=== PATIENT | female | born 1995 | race Caucasian/White ===

== ENCOUNTER 2017-04-19 10:45 | Emergency (ER) | payer OTHER ==
[2017-04-19 10:50] VITALS: BP 115/70; BMI 24.2
--- NOTE | 2017-04-19 11:34 | DR.GENAD ---
HPI - PCP Primary Care Physician: toña thrasher - Complaint/Symptoms Chief Complaint Doctors Comments: Patient is a female with LMP 12 March;EDC 12/16' started with monthly one weeks ago, stopped s/p three days, now complains of lower abdominal pain. She took acetaminophen x 1 but does not help. Chief Complaint:: patient took a test about a weak ago and it was positive, now she is bleeding and and having abd pain - Source History Provided: Patient - Mode of Arrival Mode of Arrival: Ambulatory - Timing Onset of Chief Complaint: 04/12/17 PMH - PMH Past Medical History: Yes Past Medical History: Anxiety, Asthma Past Surgical History: Yes Surgical History: Tonsillectomy - Family History History of Family Medical Conditions: Yes Family Medical History: Cancer, Coronary Artery Disease - Social History Does patient currently use any type of tobacco product: No Have you used tobacco products in the last 12 months: No Type of Tobacco Use: None Does any household member use tobacco: Yes Alcohol Use: Rarely Do you use any recreational Drugs:: No Lives With: Family Lives Where: Home - infectious screening In the last 2 months have you had wt loss of >10#?: NO Have you had fever, night sweats or hemotysis?: No Have you traveled outside the country in the last 6 months?: No Isolation: Standard ROS - Review of Systems Eyes: No Symptoms Reported ENTM: No Symptoms Reported Respiratoy: No Symptoms Reported Cardiovascular: No Symptoms Reported, See HPI Gastrointestinal/Abdominal: No Symptoms Reported Genitourinary: No Symptoms Reported Neurological: No Symptoms Reported Musculoskeletal: No Symptoms Reported Integumentary: No Symptoms Reported Hematologic/Lymphatic: No Symptoms Reported Endocrine: No Symptoms Reported Psychiatric: No Symptoms Reported All Other Systems: Reviewed and Negative PE - Vital Signs Vitals: Temperature 99.1 F Pulse Rate 86 Respiratory Rate 16 Blood Pressure [Left Arm] 123/74 Blood Pressure [Right Arm] 126/59 Blood Pressure 115/70 O2 Sat by Pulse Oximetry 100 - Discharge Plan Condition: Stable - Follow ups/Referrals Follow ups/Referrals: ALEXANDRU THRASHER [Primary Care Provider] - 3 days - Instructions
[2017-04-19 11:41] LABS: BILIRUBIN,URINE NEGATIVE (NEGATIVE); BLOOD/HEMOGLOBIN,URINE 1+ (NEGATIVE); GLUCOSE, URINE NEGATIVE (NEGATIVE); KETONES,URINE NEGATIVE (NEGATIVE); LEUKOCYTE ESTERASE ,URINE 3+ (NEGATIVE); NITRITES,URINE NEGATIVE (NEGATIVE); PH,URINE 6.5 (5.0 - 8.0); PROTEIN,URINE NEGATIVE (NEGATIVE); UROBILINOGEN,URINE NORMAL (NORMAL)
[2017-04-19 11:56] LABS: APPEARANCE,URINE CLEAR (CLEAR); BACTERIA,URINE TRACE /HPF (NEGATIVE); COLOR,URINE YELLOW (YELLOW); RBC,URINE RARE /HPF (NEGATIVE); SQUAMOUS EPITHELIAL CELL,UR FEW /HPF (NEGATIVE)
[2017-04-19 12:02] LABS: BASOPHILS % (AUTO) 0.6 % (0.2-1.0); EOSINOPHILS # (AUTO) 0.1 x10^3/uL (0.0-0.2); EOSINOPHILS % (AUTO) 2.3 % (0.9-2.9); HEMATOCRIT 39.7 % (36.0-47.0); HEMOGLOBIN 13.7 g/dL (12.0-16.0); LYMPHOCYTES # (AUTO) 1.5 X10^3/uL (1.3-2.9); LYMPHOCYTES % (AUTO) 30.3 % (21.0-51.0); MEAN CORPUSCULAR HEMOGLOBIN 29.8 pg (27.0-34.0); MEAN CORPUSCULAR HGB CONC 34.5 g/dL (33.0-35.0); MEAN CORPUSCULAR VOLUME 86.3 fL (80.0-100.0); MEAN PLATELET VOLUME 10.5 fL (7.4-11.0); MONOCYTES # (AUTO) 0.3 x10^3/uL (0.3-0.8); MONOCYTES % (AUTO) 5.4 % (0.0-13.0); NEUTROPHILS # (AUTO) 3.1 x10^3/uL (2.2-4.8); NEUTROPHILS % (AUTO) 61.4 % (42.0-75.0); PLATELET COUNT 195 X10^3/uL (150.0-450.0); RED CELL DISTRIBUTION WIDTH 15.2 % (11.6-16.5); WHITE BLOOD COUNT 5.1 X10^3/uL (3.6-10.0)
[2017-04-19 12:09] LABS: BLOOD UREA NITROGEN 8 mg/dL (7-18); CALCIUM 8.4 mg/dL (8.5-10.1); CARBON DIOXIDE 25.6 mmol/L (21-32); CHLORIDE 109 mmol/L (98-107); CREATININE 0.86 mg/dL (0.55-1.02); GLUCOSE 82 mg/dL (65-99); SODIUM 144 mmol/L (136-145); eGFR BLACK RACES > 60 (>60); eGFR NON BLACK RACES > 60 (>60)
== END 2017-04-19 12:04 | disposition home or self-care (01) | DRG 782 ==
LOC: ER 10:59
DX: O26.851 Spotting complicating pregnancy, first trimester (principal); Z3A.00 Weeks of gestation of pregnancy not specified
CPT/HCPCS: 36415; 80048; 81001; 84702; 85025; 99282; 99284

== ENCOUNTER 2017-07-20 18:39 | Emergency (ER) | payer SELFPAY ==
[2017-07-20 18:48] VITALS: BP 123/60; BMI 23.2
[2017-07-20] MEDS ORDERED: DUONEB 0.5 MG/3 MG NEB ONE (18:59)
[2017-07-20] MEDS ORDERED: SOLU-Medrol 125 MG VIAL IVP ONE (18:59)
[2017-07-20] MEDS ORDERED: SOLU-Medrol 125 MG VIAL ONE (19:05)
[2017-07-20] MEDS ORDERED: DUONEB 0.5 MG/3 MG ONE (19:10)
--- NOTE | 2017-07-20 19:10 | DR.GENAD ---
HPI - PCP Primary Care Physician: hector - Complaint/Symptoms Chief Complaint Doctors Comments: Patient admits to using neb daily in addition to steroids. She also states that she has anxiety taking xanax 2mg tid. Chief Complaint:: pt states" i just had a asthma attach. i have them alot" - Source History Provided: Patient - Mode of Arrival Mode of Arrival: EMS - Timing Onset of Chief Complaint: 07/20/17 PMH - PMH Past Medical History: Yes Past Medical History: Anxiety, Asthma Past Surgical History: Yes Surgical History: Tonsillectomy - Family History History of Family Medical Conditions: Yes Family Medical History: Cancer, Coronary Artery Disease - Social History Does any household member use tobacco: No Alcohol Use: None Do you use any recreational Drugs:: No Lives With: Family Lives Where: Home - infectious screening In the last 2 months have you had wt loss of >10#?: NO Have you had fever, night sweats or hemotysis?: No Have you traveled outside the country in the last 6 months?: No Isolation: Standard ROS - Review of Systems Eyes: No Symptoms Reported ENTM: No Symptoms Reported Respiratoy: No Symptoms Reported Cardiovascular: No Symptoms Reported Gastrointestinal/Abdominal: No Symptoms Reported Genitourinary: No Symptoms Reported Neurological: No Symptoms Reported Musculoskeletal: No Symptoms Reported Integumentary: No Symptoms Reported Hematologic/Lymphatic: No Symptoms Reported Endocrine: No Symptoms Reported Psychiatric: No Symptoms Reported All Other Systems: Reviewed and Negative PE - Vital Signs Vitals: Temperature 97.6 F Pulse Rate 87 Respiratory Rate 22 Blood Pressure [Left Arm] 123/74 Blood Pressure [Right Arm] 126/59 Blood Pressure 123/60 O2 Sat by Pulse Oximetry 100 - General Limitations: No Limitations General Appearance: Alert, In No Apparent Distress - Head Head Exam: Normal Inspection, Atraumatic - Eyes Eye exam: Normal Appearance, PERRL, EOMI - ENT ENT Exam: Normal Exam, Normal Oropharynx External Ear Exam: Normal External Inspection TM/Canal Exam: Bilateral Normal Nose Exam: Normal Nose Exam Mouth Exam: Normal Inspection Throat Exam: Normal Inspection - Neck Neck Exam: Normal Inspection, Full ROM - Chest Chest Inspection: Normal Inspection - Respiratory Respiratory Exam: Normal Lung Sounds Bilat Respiratory Exam: Bilateral Clear to Auscultation - Cardiovascular Cardiovascular Exam: Regular Rate, Normal Rhythm - Abdominal Exam Abdominal Exam: Normal Inspection, Normal Bowel Sounds - Extremities Extremities Exam: Normal Inspection, Full ROM - Back Back Exam: Normal Inspection, Full ROM - Neurologic Neurological Exam: Alert, Oriented X3, CN II-XII Intact - Psychiatric Psychiatric Exam: Normal Affect, Normal Mood - Skin Skin Exam: Warm, Dry, Intact ROR - XRAY XRAY Interpreted by: Self (Chest: clear) - Diagnosis Discharge Problem: Asthmatic bronchitis with exacerbation Qualifiers: Asthma severity: mild intermittent Qualified Code(s): J45.21 - Mild intermittent asthma with (acute) exacerbation - Discharge Plan Condition: Stable - Follow ups/Referrals Follow ups/Referrals: NFD,None [Primary Care Provider] - 3 days - Instructions
--- NOTE | 2017-07-20 22:08 | RAD ---
HISTORY: Asthma attack. Study: Single-view chest. Comparison: November 27, 2015. Findings: The trachea is midline. The cardiac silhouette is within normal limits. The lungs are clear without focal infiltrate or effusion. The bony thorax is unremarkable. IMPRESSION: No acute cardiopulmonary disease. Reported By:
== END 2017-07-20 19:57 | disposition home or self-care (01) ==
LOC: ER 18:48
DX: J45.21 Mild intermittent asthma with (acute) exacerbation (principal)
CPT/HCPCS: 71010; 94640; 96365; 96374; 99283; J2930; J7620

== ENCOUNTER 2018-01-18 05:45 | Emergency (ER) | payer SELFPAY ==
[~2018-01-18 05:45] MED LIST: DUONEB 0.5 MG/3 MG NEB ONE
[2018-01-18] MEDS ORDERED: DUONEB 0.5 MG/3 MG ONE ×2 (05:49→05:58)
[2018-01-18 05:52] VITALS: BMI 25.2
[2018-01-18] MEDS ORDERED: DECADRON INJ ONE (05:58)
--- NOTE | 2018-01-18 05:58 | DR.GENAD ---
HPI - Complaint/Symptoms Chief Complaint Doctors Comments: Patient presents to the ED for evaluation of her asthma. She reports that she has been using her albuterol inhaler throughout the day without any improvement in her astham. She denies smoking but her significant other and mother smokes. Patient states that she has been using her inhaler on a daily basis since the 05 of January. She has no primary care physician but uses her Ob for medication refills. PMH - PMH Past Medical History: Anxiety, Asthma Past Surgical History: Yes Surgical History: Tonsillectomy - Family History Family Medical History: Cancer, Coronary Artery Disease - Social History Do you use any recreational Drugs:: No ROS - Review of Systems Eyes: No Symptoms Reported ENTM: No Symptoms Reported Respiratoy: Non-Productive Cough, Wheezing Cardiovascular: No Symptoms Reported Gastrointestinal/Abdominal: No Symptoms Reported Genitourinary: No Symptoms Reported Neurological: No Symptoms Reported Musculoskeletal: No Symptoms Reported Integumentary: No Symptoms Reported Hematologic/Lymphatic: No Symptoms Reported Endocrine: No Symptoms Reported Psychiatric: No Symptoms Reported All Other Systems: Reviewed and Negative PE - Vital Signs Vitals: Temperature 98.6 F Pulse Rate 127 Respiratory Rate 28 Blood Pressure [Left Arm] 123/74 Blood Pressure [Right Arm] 126/59 Blood Pressure 128/67 O2 Sat by Pulse Oximetry 94 - General Limitations: No Limitations General Appearance: Alert, In No Apparent Distress - Head Head Exam: Normal Inspection, Atraumatic - Eyes Eye exam: Normal Appearance, PERRL, EOMI - ENT ENT Exam: Normal Exam External Ear Exam: Normal External Inspection TM/Canal Exam: Bilateral Normal Nose Exam: Normal Nose Exam Mouth Exam: Normal Inspection Throat Exam: Normal Inspection - Neck Neck Exam: Normal Inspection - Chest Chest Inspection: Normal Inspection - Respiratory Respiratory Exam: Normal Lung Sounds Bilat Respiratory Exam: Bilateral Wheezing (posterior bases), Bilateral Decreased Breath Sounds - Cardiovascular Cardiovascular Exam: Regular Rate, Normal Rhythm - Abdominal Exam Abdominal Exam: Normal Inspection, Normal Bowel Sounds Abdominal Tenderness: negative: RUQ, RLQ, LUQ, LLQ, Epigastrium, Suprapubic, Diffuse, Mild, Moderate, Severe, Other - Extremities Extremities Exam: Normal Inspection, Full ROM - Back Back Exam: Normal Inspection, Full ROM - Neurologic Neurological Exam: Alert, Oriented X3, CN II-XII Intact - Psychiatric Psychiatric Exam: Normal Affect, Normal Mood - Skin Skin Exam: Warm, Dry, Intact Course - Treatment Treatment: Duo Neb +Decadron - Reevaluation 1st: Improved - Education/Counseling Education/Counseling: Education Educated On: Treatment, Diagnosis, Prognosis, Needs for Follow Up - Diagnosis Discharge Problem: Acute asthma exacerbation Qualifiers: Asthma severity: mild Asthma persistence: intermittent Qualified Code(s): J45.21 - Mild intermittent asthma with (acute) exacerbation - Discharge Plan Condition: Stable Prescriptions: Albuterol Sulfate [VENTOLIN or PROAIR HFA Inhaler *] 2 puff INH Q4H PRN #1 inh PRN Reason: Asthma Symptoms Fluticasone-Salmeterol 100/50 [ADVAIR DISKUS 100/50 60-DOSE *] 1 puff IN BID #1 each - Follow ups/Referrals Follow ups/Referrals: MIGUEL DEL CID [Primary Care Provider] - 3 days - Instructions
[2018-01-18] MEDS ORDERED: DECADRON JET NEB (RESP USE) NEB ONE (06:01)
[2018-01-18] MEDS ORDERED: DUONEB 0.5 MG/3 MG NEB ONE (06:01)
[2018-01-18 06:22] VITALS: BP 130/63
== END 2018-01-18 06:22 | disposition home or self-care (01) ==
LOC: ER 05:45
DX: J45.21 Mild intermittent asthma with (acute) exacerbation (principal)
CPT/HCPCS: 94640; 99282; J1100; J7620

== ENCOUNTER 2018-01-19 03:00 | Emergency (ER) | payer OTHER ==
[2018-01-19 03:16] VITALS: BMI 25.2
[2018-01-19] MEDS ORDERED: PROVENTIL NEB TX 0.083% 2.5MG/ 3ML ONE (03:31)
--- NOTE | 2018-01-19 03:40 | DR.GENAD ---
HPI - PCP Primary Care Physician: mackenzie - HPI Comment HPI Comment: HERE VIA EMS. NEB TREATMENT WITH ALBUTEROL BUT PATIENT IS STILL FEELING SOB. NO FEVER. IN ED LAST NIGHT FOR SAME. MEDS PRESCRIB IS NOT FILL YET. - Complaint/Symptoms Chief Complaint Doctors Comments: INCREASING SOB TIMES ONE HOUR. Chief Complaint:: pt c/o having a asthma attack pt seen [id number] given rx for advair diskus and ventolin inhaler. pt is 16 week ob - Nurses notes reviewed Nurses Notes Review: Yes - Source History Provided: Patient - Mode of Arrival Mode of Arrival: EMS - Timing Onset of Chief Complaint: 01/19/18 Came on: Suddenly - Duration Duration: Constant Duration: Hours - Severity Severity: Moderate PMH - PMH Past Medical History: Yes Past Medical History: Anxiety, Asthma Past Surgical History: Yes Surgical History: Tonsillectomy - Family History History of Family Medical Conditions: Yes Family Medical History: Cancer, Coronary Artery Disease - Social History Does any household member use tobacco: Yes (mom and ) Alcohol Use: None Do you use any recreational Drugs:: No Lives With: Family Lives Where: Home - infectious screening In the last 2 months have you had wt loss of >10#?: NO Have you had fever, night sweats or hemotysis?: No Have you traveled outside the country in the last 6 months?: No Isolation: Standard ROS - Review of Systems Constitutional: Weakness, Fatigue. negative: Chills, Fever, Loss of Appetite Eyes: No Symptoms Reported. negative: Eye Pain, Discharge ENTM: Nose Congestion. negative: Ear Pain, Nose Discharge, Throat Pain Respiratoy: Productive Cough, Short of Breath, Wheezing. negative: Hemoptysis Cardiovascular: Chest Pain. negative: Edema Gastrointestinal/Abdominal: No Symptoms Reported. negative: Abdominal Pain, Diarrhea, Nausea, Vomiting Genitourinary: No Symptoms Reported. negative: Dysuria, Frequency, Hematuria Neurological: Weakness. negative: Headache, Dizziness Musculoskeletal: No Symptoms Reported Integumentary: No Symptoms Reported Hematologic/Lymphatic: No Symptoms Reported Endocrine: No Symptoms Reported All Other Systems: Reviewed and Negative PE - Vital Signs Vitals: Temperature 97.4 F Pulse Rate 103 Respiratory Rate 24 Blood Pressure [Left Arm] 130/63 Blood Pressure [Right Arm] 126/59 Blood Pressure 122/89 O2 Sat by Pulse Oximetry 94 - General Limitations: No Limitations General Appearance: Alert - Head Head Exam: Normal Inspection - Eyes Eye exam: Normal Appearance - ENT ENT Exam: Normal External Ear Exam External Ear Exam: Normal External Inspection TM/Canal Exam: Bilateral Normal Nose Exam: Normal Nose Exam Mouth Exam: Normal Inspection Throat Exam: Normal Inspection - Neck Neck Exam: Trachea Midline - Chest Chest Inspection: Symmetric Chest Wall Rise - Respiratory Respiratory Exam: Normal Lung Sounds Bilat Respiratory Exam: Bilateral Wheezing, Bilateral Rhonchi, Left Wheezing, Left Rhonchi, Right Wheezing, Right Rhonchi, Upper Wheezing, Upper Rhonchi, Lower Wheezing, Lower Rhonchi - Cardiovascular Cardiovascular Exam: Regular Rate, Normal Rhythm - Abdominal Exam Abdominal Exam: Normal Bowel Sounds, Soft. negative: Tenderness - Extremities Extremities Exam: Normal Inspection - Back Back Exam: Normal Inspection - Neurologic Neurological Exam: Alert, Oriented X3 - Psychiatric Psychiatric Exam: Anxious - Skin Skin Exam: Normal Color MDM - Additional Information Additional Information Obtained From: Family - Differential Diagnosis Differential Diagnosis: ACUTE EXACERBATION OF ASTHMA. Course - Treatment Treatment: SEE ORDERS. PATIENT IS FEELING BETTER . LAYING FLATE I9N BED WITHOUT ACUTE RESP DISTRESS. MILD WHEEZING PRESENT. - Consultation Consultation Comments: DISCUSS PATIENT WITH DR. DEL CID. HER OFFICE WILL BE IN TOUCH WITH PATIENT TODAY. - Education/Counseling Education/Counseling: Patient, Family, Education Educated On: Diagnosis, Needs for Follow Up ROR - Labs Reviewed Laboratory Results Reviewed?: Yes Laboratory: Sample Site [facility] 01/19/18 03:27 ABG pH 7.480 (7.35-7.45) H 01/19/18 03:27 ABG pCO2 28.0 mmHg (35.0-45.0) L 01/19/18 03:27 ABG pO2 67.0 mmHg (80.0-100.0) L 01/19/18 03:27 ABG HCO3 20.9 mmol/L (22-26) L 01/19/18 03:27 ABG O2 Saturation 94.0 % (90-100) 01/19/18 03:27 ABG Base Excess -1.5 mmol/L (-2.0-2.0) 01/19/18 03:27 Cordell Test Na 01/19/18 03:27 A-a Gradient 48.0 mmHg 01/19/18 03:27 FiO2 21.000 01/19/18 03:27 Blood Gas Comments [facility] abg well-mtf 01/19/18 03:27 - Diagnosis Discharge Problem: Asthma without acute exacerbation - Discharge Plan Condition: Stable - Follow ups/Referrals Follow ups/Referrals: MIGUEL DEL CID [Primary Care Provider] - 01/19/18 - Instructions Instructions: Asthma, Adult, [id number], Asthma Attack Prevention, Adult Additional Instructions: RETURN TO ED IF WORSE. FILL PRESCRIPTIONS THIS AM AND USE INSTRUCTED.
[2018-01-19] MEDS ORDERED: ACCUNEB 1.25 MG NEBULE NEB ONE (03:43)
[2018-01-19] MEDS ORDERED: DECADRON JET NEB (RESP USE) NEB ONE ×4 (03:43→17:22)
[2018-01-19 03:45] LABS: ABG BASE EXCESS -1.5 mmol/L (-2.0-2.0); ABG HCO3 20.9 mmol/L (22-26)
[2018-01-19] MEDS ORDERED: TYLENOL 500 MG TAB EXTRA STRENGTH PO ONE ×2 (04:31→04:40)
[2018-01-19] MEDS ORDERED: DUONEB 0.5 MG/3 MG NEB ONE (15:43)
[2018-01-19] MEDS: DUONEB 0.5 MG/3 MG NEB ONE ×2 (15:54→17:21)
[2018-01-19] MEDS ORDERED: BUSPAR PO ONE (16:22)
[2018-01-19 23:36] VITALS: BP 153/80
== END 2018-01-19 17:48 | disposition home or self-care (01) ==
LOC: ER 03:00
DX: R06.02 Shortness of breath (principal); J45.909 Unspecified asthma, uncomplicated
CPT/HCPCS: 36600; 82803; 94640; 99284; J7613; J7620

== ENCOUNTER 2018-01-19 11:27 | Emergency (ER) | payer OTHER ==
[2018-01-19 11:38] VITALS: BMI 25.2
--- NOTE | 2018-01-19 11:55 | DR.PSYCH ---
HPI - Time Seen Time seen: 11:35 - PCP Primary Care Physician: DR. DEL CID - Complaint Chief Complaint Doctors Comments: Patient presents with complaint of anxiety attack. She states that she has anxiety since [age] years of age; has been on xanax 2mg tid. She stopped taking medication when she became . She was seen on last night in the ED for asthma attack and the previous night for same. She is on albuterol and Advair. Chief Complaint:: PATIENT STATED THAT SHE BELIVES HER PANIC ATTACKS ARE COMING CLOSER AND CLOSER SINCE SHE WAS TAKEN OFF HER MEDS. SHE STATED THAT SHE WAS ON XANAX PRIOR OB STATUS. PATIENT WAS GIVEN DUO NEBS AND ALSO A ATIVAN 1 MG SL TO ARRIVING AT ED. - Source History Provided: Patient, EMS - Mode of Arrival Mode of Arrival: EMS - Timing Onset of Chief Complaint: 01/19/18 PMH - PMH Past Medical History: Yes Past Medical History: Anxiety, Asthma Past Surgical History: Yes Surgical History: Tonsillectomy - Family History History of Family Medical Conditions: Yes Family Medical History: Cancer, Coronary Artery Disease - Social History Does patient currently use any type of tobacco product: No Have you used tobacco products in the last 12 months: No Type of Tobacco Use: None Does any household member use tobacco: No Alcohol Use: None Do you use any recreational Drugs:: No Lives With: Family Lives Where: Home - infectious screening In the last 2 months have you had wt loss of >10#?: NO Have you had fever, night sweats or hemotysis?: No Have you traveled outside the country in the last 6 months?: No Isolation: Standard ROS - Review of Systems Constitutional: No Symptoms Reported Eyes: No Symptoms Reported ENTM: No Symptoms Reported Respiratoy: No Symptoms Reported Cardiovascular: No Symptoms Reported Gastrointestinal/Abdominal: No Symptoms Reported Genitourinary: No Symptoms Reported Neurological: No Symptoms Reported Musculoskeletal: No Symptoms Reported Integumentary: No Symptoms Reported Hematologic/Lymphatic: No Symptoms Reported Endocrine: No Symptoms Reported Psychiatric: No Symptoms Reported All Other Systems: Reviewed and Negative PE - Vitals Vitals: Temperature 97.8 F Pulse Rate 128 Respiratory Rate 22 Blood Pressure [Left Arm] 109/59 Blood Pressure [Right Arm] 126/59 Blood Pressure 138/105 O2 Sat by Pulse Oximetry 97 - General Limitations: No Limitations General Appearance: Alert, In No Apparent Distress - Head Head Exam: Normal Inspection, Atraumatic Head Exam Physical: Laceration - Eyes Eye exam: Normal Appearance, PERRL, Scleral Icterus Pupils: Regular, Round: Bilateral Sclera/Conjunctival: Normal Inspection: Bilateral - ENT ENT Exam: Normal Exam, Normal Oropharynx - Neck Neck Exam: Normal Inspection, Full ROM - Chest Chest Inspection: Normal Inspection, Symmetric Chest Wall Rise - Respiratory Respiratory Exam: Normal Lung Sounds Bilat Respiratory Exam: Bilateral Clear to Auscultation - Cardiovascular Cardiovascular Exam: Regular Rate, Normal Rhythm - Abdominal Exam Abdominal Exam: Normal Inspection Abdominal Tenderness: negative: RUQ, RLQ, LUQ, LLQ, Epigastrium, Suprapubic, Diffuse, Mild, Moderate, Severe, Other - Extremities Extremities Exam: Normal Inspection, Full ROM - Back Back Exam: Normal Inspection - Neurologic Neurological Exam: Alert, Oriented X3, CN II-XII Intact Cranial Nerve Exam: EOM Function (II, III, IV, ): Normal Cerebellar Function: Finger to Nose: Normal Cerebellar Function: Normal Gait Motor Strength - LUE: 3/5 Motor Strength - RUE: 3/5 Motor Strength - LLE: 3/5 Motor Strength - RLE: 3/5 Sensory Exam Upper Extremity: Light Touch: Normal Sensory Exam Lower Extremity: Light Touch: Normal DTR: achilles tendon (L): 2+ - Psychiatric Psychiatric Exam: Anxious - Skin Skin Exam: Warm, Dry Course - Treatment Treatment: Patient received one dose of larazepam lmg enroute to ED from EMS - Reevaluation 1st: Improved - Diagnosis Discharge Problem: Anxiety attack - Discharge Plan Condition: Stable - Follow ups/Referrals Follow ups/Referrals: MIGUEL DEL CDI [Primary Care Provider] - 3 days - Instructions
[2018-01-19] MEDS ORDERED: DUONEB 0.5 MG/3 MG ONE ×2 (15:48→17:13)
[2018-01-19] MEDS ORDERED: DECADRON JET NEB (RESP USE) NEB ONE ×2 (15:55→17:12)
[2018-01-19] MEDS ORDERED: BUSPAR ONE (16:26)
[2018-01-20] MEDS ORDERED: MAGNESIUM SULFATE 1 GM/100 mL PREMIX 1 GM/100 ML BAG IV ONE ×2 (00:38→07:16)
[2018-01-20] MEDS ORDERED: DUONEB 0.5 MG/3 MG ONE ×4 (00:42→07:19)
[2018-01-20] MEDS ORDERED: SOLU-Medrol 125 MG VIAL ONE (00:42)
[2018-01-20] MEDS: DUONEB 0.5 MG/3 MG NEB ONE ×2 (00:52→04:44)
[2018-01-20] MEDS ORDERED: SOLU-Medrol 125 MG VIAL IVP SCH (01:00)
[2018-01-20] MEDS ORDERED: DUONEB 0.5 MG/3 MG NEB ONE ×2 (04:14→07:20)
[2018-01-20 04:35] LABS: ABG BASE EXCESS -2.8 mmol/L (-2.0-2.0); ABG HCO3 19.1 mmol/L (22-26)
--- NOTE | 2018-01-20 04:56 | RAD ---
AP Chest Indication: Shortness of breath Comparison: 07/20/17 Findings: The trachea is midline. The cardiac silhouette is unremarkable. The lungs are clear without focal i nfiltrate or effusion. The bony thorax is unremarkable. IMPRESSION: 1. No acute cardiopulmonary abnormality. Reported By:
--- NOTE | 2018-01-20 05:45 | US ---
OB ultrasound greater than 14 weeks Indication: Vaginal bleeding Comparison: None available Technique: Multiple grayscale and color flow Doppler images of the pelvis were obtained with focused evaluation of the fetus. Findings: A viable single intrauterine is identified with heart tones of 142 beats per minute. A transverse presentation is observed with a anterior and fundal placenta. No retroplacental or subch ronic hemorrhage. Normal amniotic fluid is noted. Value Estimated Gestational Age BPD 3.38 cm 16 weeks, 3 days HC 11.08 cm 15 weeks, 2 days AC 9.92 cm 16 weeks, 0 days FL 1.95 cm 15 weeks, 6 days Estimated gestational age is 15 weeks, 6 days. Estimated weight is 137 g. IMPRESSION: A viable single intrauterine with an average ultrasound age of 15 weeks, 6 days. The placenta is normal morphology without evidence of subchorionic or retroplacental bleeding. Reported By:
[2018-01-20] MEDS ORDERED: XANAX PO ONE (07:16)
[2018-01-20] MEDS ORDERED: XANAX ONE (07:24)
[2018-01-20] MEDS ORDERED: TUSSIONEX PENNKINETIC SUSP PO ONE ×2 (07:54→07:57)
[2018-01-20] MEDS ORDERED: TUSSIONEX PENNKINETIC SUSP ONE (07:55)
[2018-01-20 08:24] VITALS: BP 121/70
== END 2018-01-20 08:32 | disposition home or self-care (01) ==
LOC: ER 11:27
DX: F41.8 Other specified anxiety disorders (principal); Z3A.15 15 weeks gestation of pregnancy
CPT/HCPCS: 36600; 71045; 76815; 82803; 94640; 96374; 99282; 99284; 99285; J2930; J7613; J7620

== ENCOUNTER 2018-02-02 20:51 | Emergency (ER) | payer OTHER ==
[2018-02-02 20:58] LABS: ABG BASE EXCESS -3.1 mmol/L (-2.0-2.0); ABG HCO3 27.9 mmol/L (22-26)
[2018-02-02 20:59] LABS: ABG ALLEN TEST POS; FRACTIONATED INSPIRED OXYGEN 100
--- NOTE | 2018-02-02 21:04 | DR.GENAD ---
HPI - PCP Primary Care Physician: mackenzie - HPI Comment HPI Comment: PATIENT RESPOND TOPAINFULL STIMULI. - Complaint/Symptoms Chief Complaint Doctors Comments: PATIENT HAVE HISTORY OF ASTHMA. HER ASTHMA MEDICATIONS DID NOT HELP HER RESP DISTRESS. SHE IS 15 WEEKS . DUE DATE IS 07/22/2018. PATIENTS OB DR IS DR. DEL CID IN [facility]. SHE PRESENTED COLD, PALE AND CLAMY TO ED WITH VISIBLE PERIPHERAL CYANOSIS. O2 SAT IN THE 50S.SHE WAS SLEEPY AND ASROUSE WITH PAINFUL STIMULI. Chief Complaint:: pt's boyfriend states" SHE'S BEEN HAVING BAD PANIC ATTACKS SHE TOKE A EXTRA HALF OF A XANAX BAR. SHE'S BEEN BREATHING LIKE THIS FOR 5 HOURS " NAIL BEDS ARE CYANOTIC PT'S SKIN IS DUSKY AND RESP ARE RAPID AND SWALLOW. - Nurses notes reviewed Nurses Notes Review: Yes - Source History Provided: Family Member - Mode of Arrival Mode of Arrival: Wheelchair - Timing Onset of Chief Complaint: 02/02/18 Came on: Gradually - Duration Duration: Constant Duration: Hours - Severity Severity: Severe PMH - PMH Past Medical History: Yes Past Medical History: Anxiety, Asthma Past Surgical History: Yes Surgical History: Tonsillectomy - Family History History of Family Medical Conditions: Yes Family Medical History: Cancer, Coronary Artery Disease - Social History Do you use any recreational Drugs:: No Lives With: Family Lives Where: Home - infectious screening In the last 2 months have you had wt loss of >10#?: NO Have you had fever, night sweats or hemotysis?: No Have you traveled outside the country in the last 6 months?: No Isolation: Standard ROS - Review of Systems Constitutional: Weakness, Fatigue, Other. negative: Fever Eyes: Other (RESPOND TO PAINFUL STIMULI.) ENTM: negative: Ear Pain, Nose Discharge, Nose Congestion, Throat Pain Respiratoy: No Symptoms Reported, Non-Productive Cough, Short of Breath, Wheezing. negative: Hemoptysis Cardiovascular: Chest Pain, Palpitations, Cyanosis. negative: Edema Gastrointestinal/Abdominal: No Symptoms Reported. negative: Abdominal Pain, Nausea, Vomiting Genitourinary: Other (DECREASE URINE OUTPUT.). negative: Dysuria Neurological: Headache, Weakness, Dizziness Musculoskeletal: Muscle Pain, Chest wall, Rib(s) Integumentary: Change in Color, Dryness Hematologic/Lymphatic: Anemia Endocrine: Increased Thirst. negative: Flushing All Other Systems: Reviewed and Negative PE - Vital Signs Vitals: Pulse Rate [Right] 105 Pulse Rate 106 Respiratory Rate 40 Blood Pressure [Left Arm] 133/61 Blood Pressure [Right Arm] 121/70 Blood Pressure 161/83 O2 Sat by Pulse Oximetry 99 - General Limitations: Altered Mental Status (SLEEPY.) General Appearance: Anxious, Lethargic, In Distress - Head Head Exam: Atraumatic - Eyes Eye exam: Normal Appearance - ENT ENT Exam: Normal Oropharynx, Normal External Ear Exam, TM's Normal Bilaterally External Ear Exam: Normal External Inspection TM/Canal Exam: Bilateral Normal Nose Exam: Normal Nose Exam. negative: Sinus Tenderness Mouth Exam: Normal Inspection Throat Exam: negative: Tonsillar Erythema, Tonsillomegaly, Tonsillar Exudate - Neck Neck Exam: Trachea Midline - Chest Chest Inspection: Symmetric Chest Wall Rise, Other (INCREASE RESP EFFORT. USE OF ACEESSORY MUSCLE FOR BREATHING.) - Respiratory Respiratory Exam: Accessory Muscle Use, Respiratory Distress Respiratory Exam: Bilateral Wheezing, Bilateral Rhonchi, Upper Wheezing, Upper Rhonchi, Lower Wheezing, Lower Rhonchi - Cardiovascular Cardiovascular Exam: Tachycardia - Abdominal Exam Abdominal Exam: Normal Bowel Sounds, Soft. negative: Tenderness - Back Back Exam: Normal Inspection - Neurologic Neurological Exam: Alert. negative: Oriented X3, Motor Sensory Deficit - Psychiatric Psychiatric Exam: Anxious - Skin Skin Exam: Cyanosis (ON PRESENTING TO ED.) MDM - Additional Information Additional Information Obtained From: Family - Differential Diagnosis Differential Diagnosis: ACUTE RESP FAILURE, ACUTE ASTHMA EXACERBATION, AMS, VIABLE 16 WEEKS PREGNAN Course - Treatment Treatment: SEE ORDERS, DUE TO EXUSTION AND LAC OF RESPOSPONSE TO BI- PAP, EN TUBE PLACE IN ED. SIZE ET TUBE IS 7.5 PORTABLE CXR CONFIRMS TUBE TO BE IN GOOD POSITION. - Consultation Consultation Comments: PATIENT ACCEPTED FOR TRANSFER BY DR. SUH , [facility]. - Education/Counseling Education/Counseling: Patient Educated On: Treatment, Diagnosis ROR - Labs Reviewed Laboratory Results Reviewed?: Yes Result Diagrams: 02/02/18 20:52 02/02/18 20:52 Laboratory: 02/03/18 00:08 Sputum - Endotracheal Wash - Final WBC 28.1 X10^3/uL (3.6-10.0) H 02/02/18 20:52 RBC 4.25 X10^6/uL (3.5-5.4) 02/02/18 20:52 Hgb 12.9 g/dL (12.0-16.0) 02/02/18 20:52 Hct 38.2 % (36.0-47.0) 02/02/18 20:52 MCV 90.0 fL (80.0-100.0) 02/02/18 20:52 MCH 30.4 pg (27.0-34.0) 02/02/18 20:52 MCHC 33.7 g/dL (33.0-35.0) 02/02/18 20:52 RDW 13.6 % (11.6-16.5) 02/02/18 20:52 Plt Count 319 X10^3/uL (150.0-450.0) 02/02/18 20:52 Plt Count Comment Adequate (ADEQUATE) 02/02/18 20:52 MPV 9.7 fL (7.4-11.0) 02/02/18 20:52 Neut % (Auto) 91.2 % (42.0-75.0) H 02/02/18 20:52 Lymph % (Auto) 3.7 % (21.0-51.0) L 02/02/18 20:52 Braxton % (Auto) 4.6 % (0.0-13.0) 02/02/18 20:52 Eos % (Auto) 0.1 % (0.9-2.9) L 02/02/18 20:52 Baso % (Auto) 0.4 % (0.2-1.0) 02/02/18 20:52 Neut # (Auto) 25.6 x10^3/uL (2.2-4.8) H 02/02/18 20:52 Lymph # (Auto) 1.0 X10^3/uL (1.3-2.9) L 02/02/18 20:52 Braxton # (Auto) 1.3 x10^3/uL (0.3-0.8) H 02/02/18 20:52 Eos # (Auto) 0.0 x10^3/uL (0.0-0.2) 02/02/18 20:52 Baso # (Auto) 0.1 X10^3/uL (0.0-0.1) 02/02/18 20:52 Absolute Nucleated RBC 0.0 /100WBC 02/02/18 20:52 Total Counted 100 02/02/18 20:52 Neutrophils % (Manual) 93 % (39-76) H 02/02/18 20:52 Band Neutrophils % 2 % (0-10) 02/02/18 20:52 Lymphocytes % (Manual) 4 % (13-43) L 02/02/18 20:52 Monocytes % (Manual) 1 % (4-9) L 02/02/18 20:52 Plt Morphology Comment Normal (NORMAL) 02/02/18 20:52 RBC Morphology Normal (NORMAL) 02/02/18 20:52 Sample Site Rr 02/03/18 00:20 ABG pH 7.100 (7.35-7.45) L* 02/03/18 00:20 ABG pCO2 96.0 mmHg (35.0-45.0) H* 02/03/18 00:20 ABG pO2 284.0 mmHg (80.0-100.0) H 02/03/18 00:20 ABG HCO3 29.8 mmol/L (22-26) H 02/03/18 00:20 ABG O2 Saturation 100.0 % (90-100) 02/03/18 00:20 ABG Base Excess -2.2 mmol/L (-2.0-2.0) L 02/03/18 00:20 Cordell Test Pos 02/03/18 00:20 A-a Gradient 309.0 mmHg 02/03/18 00:20 FiO2 100 02/03/18 00:20 Blood Gas Comments Kina well ae 02/03/18 00:20 Sodium 137 mmol/L (136-145) 02/02/18 20:52 Corrected Sodium 140 mmol/L (136-145) 02/02/18 20:52 Potassium 3.6 mmol/L (3.5-5.1) 02/02/18 20:52 Chloride 103 mmol/L (98-107) 02/02/18 20:52 Carbon Dioxide 27.3 mmol/L (21-32) 02/02/18 20:52 BUN 8 mg/dL (7-18) 02/02/18 20:52 Creatinine 0.56 mg/dL (0.55-1.02) 02/02/18 20:52 Est GFR (MDRD) Af Amer > 60 (>60) 02/02/18 20:52 Est GFR (MDRD) Non-Af > 60 (>60) 02/02/18 20:52 Glucose 223 mg/dL (65-99) H 02/02/18 20:52 Calcium 8.4 mg/dL (8.5-10.1) L 02/02/18 20:52 Corrected Calcium 9.4 mg/dL (8.5-10.1) 02/02/18 20:52 Total Bilirubin 0.30 mg/dL (0.2-1.0) 02/02/18 20:52 AST 16 Units/L (15-37) 02/02/18 20:52 ALT 10 Units/L (12-78) L 02/02/18 20:52 Alkaline Phosphatase 121 Units/L (46-116) H 02/02/18 20:52 Total Protein 7.2 g/dL (6.4-8.2) 02/02/18 20:52 Albumin 2.7 g/dL (3.4-5.0) L 02/02/18 20:52 Globulin 4.5 g/dL (2.5-4.5) 02/02/18 20:52 Albumin/Globulin Ratio 0.6 Ratio (1.1-2.1) L 02/02/18 20:52 HCG, Quant 61136 mIU/mL (0-6) H 02/02/18 20:52 Specimen Type Catherized urine 02/02/18 22:38 Urine Color Yellow (YELLOW) 02/02/18 22:38 Urine Appearance Clear (CLEAR) 02/02/18 22:38 Urine pH 5.0 (5.0 - 8.0) 02/02/18 22:38 Ur Specific [place] 1.015 (1.000-1.030) 02/02/18 22:38 Urine Protein 1+ (NEGATIVE) 02/02/18 22:38 Urine Glucose (UA) 2+ (NEGATIVE) 02/02/18 22:38 Urine Ketones Negative (NEGATIVE) 02/02/18 22:38 Urine Occult Blood 4+ (NEGATIVE) 02/02/18 22:38 Urine Nitrite Negative (NEGATIVE) 02/02/18 22:38 Urine Bilirubin Negative (NEGATIVE) 02/02/18 22:38 Urine Urobilinogen Normal (NORMAL) 02/02/18 22:38 Ur Leukocyte Esterase 1+ (NEGATIVE) 02/02/18 22:38 Urine Opiates Screen Negative (NEG=<300) 02/02/18 22:38 Urine Methadone Screen Negative (NEG=<300) 02/02/18 22:38 Ur Barbiturates Screen Negative (NEG=<200) 02/02/18 22:38 Ur Phencyclidine Scrn Negative (NEG=<25) 02/02/18 22:38 Ur Amphetamines Screen Negative (NEG=<1000) 02/02/18 22:38 U Benzodiazepines Scrn Positive (NEG=<200) A 02/02/18 22:38 Urine Cocaine Screen Negative (NEG=<300) 02/02/18 22:38 U Marijuana (THC) Screen Negative (NEG=<50) 02/02/18 22:38 - XRAY XRAY Interpreted by: Self XRAY Findings: EXRAY NOTED. TUBE PLACEMENT IN GOOD POSITION. - EKG Rhythm: ST (EKG NOTED.) - Diagnosis Discharge Problem: Viable in second trimester Acute respiratory failure Qualifiers: Respiratory failure complication: hypoxia Qualified Code(s): J96.01 - Acute respiratory failure with hypoxia Acute asthma exacerbation Qualifiers: Asthma severity: severe Asthma persistence: persistent Qualified Code(s): J45.51 - Severe persistent asthma with (acute) exacerbation Altered mental state Qualifiers: Altered mental status type: unspecified Qualified Code(s): R41.82 - Altered mental status, unspecified - Discharge Plan Condition: Stable - Follow ups/Referrals Follow ups/Referrals: MIGUEL DEL CID [Primary Care Provider] - 3 days - Instructions
[2018-02-02] MEDS ORDERED: NS 1000 ML 1,000 ML IV ONE (21:09)
[2018-02-02 21:10] VITALS: BMI 25.4
[2018-02-02] MEDS ORDERED: NS 1000 ML 1,000 ML ONE ×2 (21:11→23:26)
[2018-02-02 21:20] LABS: BASOPHILS # (AUTO) 0.1 X10^3/uL (0.0-0.1); BASOPHILS % (AUTO) 0.4 % (0.2-1.0); EOSINOPHILS % (AUTO) 0.1 % (0.9-2.9); HEMATOCRIT 38.2 % (36.0-47.0); HEMOGLOBIN 12.9 g/dL (12.0-16.0); LYMPHOCYTES % (AUTO) 3.7 % (21.0-51.0); MEAN CORPUSCULAR HEMOGLOBIN 30.4 pg (27.0-34.0); MEAN CORPUSCULAR HGB CONC 33.7 g/dL (33.0-35.0); MEAN PLATELET VOLUME 9.7 fL (7.4-11.0); MONOCYTES # (AUTO) 1.3 x10^3/uL (0.3-0.8); MONOCYTES % (AUTO) 4.6 % (0.0-13.0); NEUTROPHILS # (AUTO) 25.6 x10^3/uL (2.2-4.8); NEUTROPHILS % (AUTO) 91.2 % (42.0-75.0); PLATELET COUNT 319 X10^3/uL (150.0-450.0); RED BLOOD COUNT 4.25 X10^6/uL (3.5-5.4); RED CELL DISTRIBUTION WIDTH 13.6 % (11.6-16.5); WHITE BLOOD COUNT 28.1 X10^3/uL (3.6-10.0)
[2018-02-02 21:27] LABS: BAND NEUTROPHILS % 2 % (0-10); PLATELET MORPHOLOGY COMMENT NORMAL (NORMAL)
[2018-02-02 21:34] LABS: ALANINE AMINOTRANSFERASE 10 Units/L (12-78); ALBUMIN 2.7 g/dL (3.4-5.0); ALKALINE PHOSPHATASE 121 Units/L (46-116); ASPARTATE AMINO TRANSFERASE 16 Units/L (15-37); BLOOD UREA NITROGEN 8 mg/dL (7-18); CALCIUM 8.4 mg/dL (8.5-10.1); CARBON DIOXIDE 27.3 mmol/L (21-32); CHLORIDE 103 mmol/L (98-107); COR CA(FOR HYPOALB) 9.4 mg/dL (8.5-10.1); COR NA(FOR HYPERGLY) 140 mmol/L (136-145); CREATININE 0.56 mg/dL (0.55-1.02); SODIUM 137 mmol/L (136-145); TOTAL PROTEIN 7.2 g/dL (6.4-8.2); eGFR BLACK RACES > 60 (>60); eGFR NON BLACK RACES > 60 (>60)
[2018-02-02 22:24] LABS: ABG ALLEN TEST POS; ABG BASE EXCESS -1.7 mmol/L (-2.0-2.0); ABG HCO3 28.9 mmol/L (22-26); FRACTIONATED INSPIRED OXYGEN 100
[2018-02-02 22:55] LABS: BILIRUBIN,URINE NEGATIVE (NEGATIVE); BLOOD/HEMOGLOBIN,URINE 4+ (NEGATIVE); GLUCOSE, URINE 2+ (NEGATIVE); KETONES,URINE NEGATIVE (NEGATIVE); LEUKOCYTE ESTERASE ,URINE 1+ (NEGATIVE); NITRITES,URINE NEGATIVE (NEGATIVE); PROTEIN,URINE 1+ (NEGATIVE); UROBILINOGEN,URINE NORMAL (NORMAL)
[2018-02-02 22:57] LABS: APPEARANCE,URINE CLEAR (CLEAR); COLOR,URINE YELLOW (YELLOW)
--- NOTE | 2018-02-02 23:14 | US ---
HISTORY: with drug overdose, respiratory distress Study: Limited OB ultrasound greater than 14 weeks Comparison: 01/20/2018 Technique: Multiple grayscale and color flow Doppler images of the pelvis were obtained with focused evaluation of the fetus. Findings: A viable single intrauterine is identified with heart tones of FHT's beats per minute . A cephalic presentation is observed with a posterior and fundal placenta. Normal amniotic fluid v olume is observed, although no FAY was calculated by the grinder operator tool. Value Estimated Gestational Age FL 2.3 cm 16 weeks, 6 days Remaining biometric parameters were not obtained as the patient had difficulty breathing during the exam. The study was therefore terminated prematurely. IMPRESSION: A viable single intrauterine with an average ultrasound age of 16 weeks, 6 days correspond to an estimated date of delivery of 07/06/2018. Limited exam, as above without acute abnormality identified, as visualized.. Reported By:
[2018-02-02] MEDS ORDERED: DIPRIVAN VIAL 20 ML ONE (23:19)
[2018-02-02] MEDS ORDERED: NORCURON INJ 10 MG VIAL ONE (23:19)
[2018-02-02] MEDS ORDERED: QUELICIN (OR ANECTINE) ONE (23:19)
[2018-02-02] MEDS ORDERED: PROVENTIL NEB TX 0.083% 2.5MG/ 3ML ONE ×2 (23:30→23:47)
[2018-02-02] MEDS ORDERED: LORAZEPAM 4 MG ONE (23:43)
[2018-02-02] MEDS ORDERED: MORPHINE SULFATE INJ 4 MG ONE (23:48)
--- NOTE | 2018-02-03 | DR.UPDATE ---
H&P Update History and Physical Update: History and Physical reviewed and patient examined. Changes noted: NO Yes with the following:agree with Dr Landa ER assessment. will proceed with emergency intubation for acute respirator distress Procedures (ALL) - Intubation Time out performed: Yes Sedative: other Mg given: propofol 150mg paralytic: succinylchline (100mg) Laryngoscope: viky (mac 3 x1 att. cords visualized. grade 1 view) ET tube size: 7.5 Tube secured depth: 20cm Tube secured location: teeth Tube placement confirmation: visualized tube passing through cords, equal breath sounds bilaterally, no breath sounds over epigastrium, comfirmation by capnometer Patient tolerated procedure: Yes Intubation complications: none (after return of spontaneous respiratory effort and continued stable vital signs, norcuron 10mg, ativan 2mg, morphine 4mg. vs remain stable for next 30 minutes after intubation and release from anesthesia care)
[2018-02-03] MEDS ORDERED: PROVENTIL NEB TX 0.083% 2.5MG/ 3ML NEB ONE (00:07)
--- NOTE | 2018-02-03 00:24 | RAD ---
Chest, one view Indication: Endotracheal tube placement Comparison: 01/20/2018 Findings: Heart size is normal. No focal consolidation or significant effusion is identified. Endotra cheal tube is well positioned, terminating 3 cm above the tangela without pneumothorax. Impression: There is factor endotracheal tube placement, as above. Reported By:
[2018-02-03 00:27] LABS: ABG ALLEN TEST POS; ABG BASE EXCESS -2.2 mmol/L (-2.0-2.0); ABG HCO3 29.8 mmol/L (22-26); FRACTIONATED INSPIRED OXYGEN 100
[2018-02-03 00:50] VITALS: BP 141/64
== END 2018-02-03 01:00 | disposition short-term general hospital (02) ==
LOC: ER 20:55
PROC: 0BH17EZ Insertion of Endotracheal Airway into Trachea, Via Natural or Artificial Opening (ICD-10-PCS; principal; 2018-02-02)
DX: J45.51 Severe persistent asthma with (acute) exacerbation (principal); J96.01 Acute respiratory failure with hypoxia; R41.82 Altered mental status, unspecified; Z3A.16 16 weeks gestation of pregnancy; B96.89 Other specified bacterial agents as the cause of diseases classified elsewhere
CPT/HCPCS: 36415; 36600; 51702; 71045; 76815; 80053; 80307; 81003; 82803; 84702; 85025; 87070; 87077; 87185; 87186; 87205; 93005; 93010; 94640; 96365; 96367; 99284; 99291; 99292; A4222; A4618; A7030; G0434; J0330; J2060; J2270; J3490; J7613

== ENCOUNTER 2018-06-30 06:20 | Inpatient (IN) ==
[2018-06-30] MEDS ORDERED: D5 1/2 NS 1L W PITOCIN 20 UNITS/L 20 UNITS/1,000 ML BAG IV ONE (06:29)
[2018-06-30] MEDS ORDERED: D5LR 1L W PITOCIN 10 UNITS/L 10 UNITS/1,000 ML BAG IV ONE (06:29)
[2018-06-30] MEDS ORDERED: D5 1/2 NS 1000 ML 1,000 ML IV ONE ×2 (06:29→21:26)
[2018-06-30] MEDS ORDERED: PITOCIN ONE ×2 (06:29→11:47)
--- NOTE | 2018-06-30 06:53 | DR.OB ---
OB Quick Note - Assessment/Plan Assessment/Plan: L&D 06/30/18 at 6:45am S-No complaint. O-Afebrile,VSS EZF=058 with good LTV, +accel, no decel. CTX=mild, irregular CVX=3-4cm/50%/-1/VTX AROM with clear fluid. IUPC and FSE placed. A-IUP at 39 1/7 weeks for induction Asthma Abn. quad screen Rh- P-Begin pitocin induction Anticipate with PP BTL
[2018-06-30] MEDS ORDERED: PITOCIN IVP ONE (07:26)
[2018-06-30] MEDS ORDERED: D5 1/2 NS 1000 ML 1,000 ML IV SCH (07:26)
[2018-06-30] MEDS ORDERED: D5LR 1L W PITOCIN 10 UNITS/L 10 UNITS/1,000 ML BAG IV PRN (07:26)
[2018-06-30] MEDS ORDERED: REGLAN INJ 10 MG VIAL IVP PRN ×2 (07:26→12:57)
[2018-06-30] MEDS ORDERED: PHENERGAN INJ 25 MG IV PRN ×2 (07:26→12:14)
[2018-06-30] MEDS ORDERED: NUBAIN INJ 200 MG VIAL MULTIDOSE IVP PRN (07:26)
[2018-06-30] MEDS ORDERED: MORPHINE SULFATE INJ 2 MG INJ IVP PRN (07:26)
[2018-06-30] MEDS ORDERED: LR 1000 ML IV 1,000 ML IV ONE ×2 (08:10→12:20)
[2018-06-30] MEDS ORDERED: ADRENALINE CHL INJ ONE (08:14)
[2018-06-30] MEDS ORDERED: XYLOCAINE 1 % (PLAIN) ONE (08:14)
[2018-06-30] MEDS ORDERED: NAROPIN EPIDURAL 0.2% + FENTANYL 90MCG 60 ML EPI ONE (08:14)
[2018-06-30] MEDS ORDERED: FENTANYL INJ 100 mcg ONE (08:35)
[2018-06-30] MEDS: D5 1/2 NS 1000 ML 1,000 ML with PITOCIN 20 UNITS IV SCH ×4 (12:02→21:15)
[2018-06-30] MEDS ORDERED: ANCEF 1 GRAM IV PREMIX* 1 G/50 ML BAG IV ONE (12:11)
[2018-06-30] MEDS ORDERED: MOTRIN TAB 800 MG PO PRN (12:14)
--- NOTE | 2018-06-30 12:19 | DR.OB ---
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 Head delivered over intact perineum. No nuchal cord. Nose and mouth bulb suctioned. Body delivered over intact perineum. Cord clamped x 2 and cut. handed to attendant. Cord segment sent for gases. Placenta delivered spontaneously / intact / 3 vessel cord. No CVX / vaginal / perineal tears noted. Viable female , VTX/OA, wt=7'7" and 9/9, stable to NBN. Mother stable to RR. [id number].
[2018-06-30] MEDS ORDERED: XYLOCAINE 2% and EPINEPHRINE 1:100,000 ONE (12:20)
[2018-06-30] MEDS ORDERED: PHENERGAN INJ 25 MG IVP PRN (12:57)
[2018-06-30] MEDS ORDERED: ZOFRAN INJ 4 MG VIAL IVP PRN (12:57)
[2018-06-30] MEDS ORDERED: DILAUDID INJ IVP PRN (12:57)
[2018-06-30] MEDS ORDERED: BENADRYL INJ 50 MG VIAL IVP PRN (12:57)
[2018-06-30] MEDS ORDERED: DILAUDID INJ ONE (13:04)
[2018-06-30] MEDS ORDERED: AMBIEN PO PRN ×2 (13:30)
[2018-06-30] MEDS ORDERED: MYLICON TAB 80 MG CHEW PO PRN (13:30)
[2018-06-30] MEDS ORDERED: PROVENTIL NEB TX 0.083% 2.5MG/ 3ML NEB PRN (13:30)
[2018-06-30] MEDS ORDERED: DERMOPLAST SPRAY TOP PRN (13:30)
[2018-06-30] MEDS ORDERED: HYPERRHO S/D (or RHOGAM) IM PRN (13:30)
[2018-06-30] MEDS ORDERED: ACCUNEB 1.25 MG NEBULE NEB PRN (13:30)
[2018-06-30] MEDS ORDERED: ADACEL or BOOSTRIX TDaP VACCINE IM ONE (13:30)
[2018-06-30] MEDS ORDERED: MILK OF MAGNESIA PO PRN ×2 (13:30)
[2018-06-30] MEDS: PERCOCET TAB 5/325 MG PO PRN ×2 (15:49→19:09)
[2018-06-30] MEDS: ZANTAC PO SCH (20:49)
[2018-06-30] MEDS: XANAX PO SCH (20:50)
[2018-07-01] MEDS: PERCOCET TAB 5/325 MG PO PRN ×2 (02:36→08:15)
[2018-07-01 05:08] LABS: HEMATOCRIT 21.9 % (36.0-47.0); HEMOGLOBIN 7.4 g/dL (12.0-16.0)
[2018-07-01] MEDS: D5 1/2 NS 1000 ML 1,000 ML with PITOCIN 20 UNITS IV SCH ×2 (05:16)
[2018-07-01] MEDS: XANAX PO SCH (08:15)
[2018-07-01] MEDS: ZANTAC PO SCH (08:15)
[2018-07-01] MEDS ORDERED: PRENATAL PLUS PO SCH (09:00)
[2018-07-01 12:41] VITALS: BP 113/56
[2018-07-01] MEDS ORDERED: BACTROBAN TOPICAL OINT TOP SCH (14:00)
== END 2018-07-01 14:00 | disposition home or self-care (01) | DRG 767 ==
LOC: LD 06:20 → MED/SURG 14:28
PROVIDERS: ADMIT Specialist; ATTEND Specialist
DX: Z37.0 Single live birth; O99.613 Diseases of the digestive system complicating pregnancy, third trimester; O26.893 Other specified pregnancy related conditions, third trimester; Z23 Encounter for immunization; Z3A.39 39 weeks gestation of pregnancy; Z30.2 Encounter for sterilization; O28.5 Abnormal chromosomal and genetic finding on antenatal screening of mother; O36.0930 Maternal care for other rhesus isoimmunization, third trimester, not applicable or unspecified
CPT/HCPCS: 36415; 59409; 80048; 80307; 81001; 84112; 85014; 85018; 85025; 85461; 86592; 86850; 86900; 86901; 90715; 94640; 99284; A4216; A4222; S0197; G0434; J0171; J0690; J1170; J2001; J2550; J2590; J3010; J3490; J7120; J7613; S0181; S5010

== ENCOUNTER 2020-07-31 04:07 | Inpatient (IN) ==
[2020-07-31] MEDS ORDERED: PROVENTIL NEB TX 0.083% 2.5MG/ 3ML ONE (04:13)
[2020-07-31] MEDS ORDERED: ZITHROMAX INJ 500 MG VIAL 500 MG in NS 250 ML IV 250 ML IV SCH (04:14)
[2020-07-31] MEDS ORDERED: SOLU-Medrol 125 MG VIAL IVP ONE (04:14)
[2020-07-31] MEDS ORDERED: DUONEB 0.5 MG/3 MG (3 mL) NEB STA (04:16)
[2020-07-31] MEDS ORDERED: ATIVAN INJ 2 MG VIAL IVP STA (04:16)
[2020-07-31] MEDS ORDERED: DUONEB 0.5 MG/3 MG (3 mL) NEB ONE (04:20)
--- NOTE | 2020-07-31 04:21 | DR.SOBA ---
HPI Time Seen Time Seen by Provider: 07/31/20 04:11 HPI Comment HPI Comment: cough and wheezing x 2-3 days; getting worse despite continuous use of jn; no fever, chills, n/v/d; lots of anxiety PMH PMH Past Medical History: Anxiety, Asthma, Depression and Seizures Past Surgical History: Yes Surgical History: Tonsillectomy Family History Family Medical History: Cancer and Coronary Artery Disease Social History Do you use any recreational Drugs:: No ROS Review of Systems Constitutional: No Symptoms Reported Eyes: No Symptoms Reported ENTM: No Symptoms Reported Cardiovascular: No Symptoms Reported Gastrointestinal/Abdominal: No Symptoms Reported Genitourinary: No Symptoms Reported Neurological: No Symptoms Reported Musculoskeletal: No Symptoms Reported Integumentary: No Symptoms Reported Hematologic/Lymphatic: No Symptoms Reported Endocrine: No Symptoms Reported PE Vital Signs Vitals: Temperature 97.8 F Pulse Rate [Left] 95 Pulse Rate 95 Respiratory Rate 20 Blood Pressure [Left Arm] 129/74 Blood Pressure 129/74 O2 Sat by Pulse Oximetry 100 General Limitations: No Limitations General Appearance: Alert and In No Apparent Distress Head Head Exam: Normal Inspection Eyes Eye exam: Normal Appearance Neck Neck Exam: Normal Inspection Chest Chest Inspection: Normal Inspection Respiratory Respiratory Exam: Accessory Muscle Use, Prolonged Expiratory Phase and Respiratory Distress Respiratory Exam: Bilateral: Wheezing and Bilateral: Decreased Breath Sounds Cardiovascular Cardiovascular Exam: Normal Rhythm and Tachycardia Abdominal Exam Abdominal Exam: Normal Inspection, Normal Bowel Sounds and Soft Extremities Extremities Exam: Normal Inspection Back Back Exam: Normal Inspection Neurologic Neurological Exam: Alert and Oriented X3 Psychiatric Psychiatric Exam: Anxious Skin Skin Exam: Warm, Dry, Intact and Normal Color COURSE Reevaluation 1st: Improved (sleeping) ROR Labs Reviewed Laboratory Results Reviewed?: Yes Result Diagrams: 07/31/20 05:11 07/31/20 05:11 Laboratory: WBC 9.8 X10^3/uL (3.6-10.0) 07/31/20 05:11 RBC 5.27 X10^6/uL (3.5-5.4) 07/31/20 05:11 Hgb 15.4 g/dL (12.0-16.0) 07/31/20 05:11 Hct 46.1 % (36.0-47.0) 07/31/20 05:11 MCV 87.6 fL (80.0-100.0) 07/31/20 05:11 MCH 29.3 pg (27.0-34.0) 07/31/20 05:11 MCHC 33.5 g/dL (33.0-35.0) 07/31/20 05:11 RDW 14.3 % (11.6-16.5) 07/31/20 05:11 Plt Count 184 X10^3/uL (150.0-450.0) 07/31/20 05:11 MPV 9.2 fL (7.4-11.0) 07/31/20 05:11 Neut % (Auto) 63.9 % (42.0-75.0) 07/31/20 05:11 Lymph % (Auto) 24.0 % (21.0-51.0) 07/31/20 05:11 [place] % (Auto) 6.7 % (0.0-13.0) 07/31/20 05:11 Eos % (Auto) 5.0 % (0.9-2.9) H 07/31/20 05:11 Baso % (Auto) 0.4 % (0.2-1.0) 07/31/20 05:11 Neut # (Auto) 6.2 x10^3/uL (2.2-4.8) H 07/31/20 05:11 Lymph # (Auto) 2.3 X10^3/uL (1.3-2.9) 07/31/20 05:11 [place] # (Auto) 0.7 x10^3/uL (0.3-0.8) 07/31/20 05:11 Eos # (Auto) 0.5 x10^3/uL (0.0-0.2) H 07/31/20 05:11 Baso # (Auto) 0.0 X10^3/uL (0.0-0.1) 07/31/20 05:11 Absolute Nucleated RBC 0.0 /100WBC 07/31/20 05:11 Sodium 143 mmol/L (136-145) 07/31/20 05:11 Corrected Sodium 144 mmol/L (136-145) 07/31/20 05:11 Potassium 3.5 mmol/L (3.5-5.1) 07/31/20 05:11 Chloride 107 mmol/L (98-107) 07/31/20 05:11 Carbon Dioxide 25.3 mmol/L (21-32) 07/31/20 05:11 BUN 11 mg/dL (7-18) 07/31/20 05:11 Creatinine 0.91 mg/dL (0.55-1.02) 07/31/20 05:11 Est GFR (MDRD) Af Amer > 60 (>60) 07/31/20 05:11 Est GFR (MDRD) Non-Af > 60 (>60) 07/31/20 05:11 Glucose 125 mg/dL (65-99) H 07/31/20 05:11 Calcium 8.9 mg/dL (8.5-10.1) 07/31/20 05:11 Corrected Calcium TNP 07/31/20 05:11 Total Bilirubin 0.80 mg/dL (0.2-1.0) 07/31/20 05:11 AST 16 Units/L (15-37) 07/31/20 05:11 ALT 21 Units/L (12-78) 07/31/20 05:11 Alkaline Phosphatase 77 Units/L (46-116) 07/31/20 05:11 Total Protein 8.0 g/dL (6.4-8.2) 07/31/20 05:11 Albumin 3.8 g/dL (3.4-5.0) 07/31/20 05:11 Globulin 4.2 g/dL (2.5-4.5) 07/31/20 05:11 Albumin/Globulin Ratio 0.9 Ratio (1.1-2.1) L 07/31/20 05:11 HCG, Qual Negative <10 mIU/mL 07/31/20 05:11 SARS-CoV-2 (PCR) Negative (NEGATIVE) 07/31/20 05:38 XRAY XRAY Interpreted by: Radiologist X-ray Results: cxr: No acute pulmonary process. Opioid Opioid Risk Tool Age (Micha box if 16-45): Yes History of Preadolescent Sexual Abuse: No Total: 1 Total Score Risk Category: Low Risk Copyright: [facility] predicting aberrant behaviors Diagnosis Discharge Problem: Dyspnea Qualifiers: Dyspnea type: shortness of breath Qualified Code(s): R06.02 - Shortness of breath Asthma exacerbation Qualifiers: Asthma severity: severe Asthma persistence: persistent Qualified Code(s): J45.51 - Severe persistent asthma with (acute) exacerbation Instructions Forms: Patient Portal Social Distancing
[2020-07-31] MEDS ORDERED: SOLU-Medrol 125 MG VIAL ONE (04:22)
[2020-07-31] MEDS ORDERED: ATIVAN INJ 2 MG VIAL ONE (04:23)
[2020-07-31] MEDS ORDERED: NS 250 ML IV 250 ML IV ONE (04:24)
[2020-07-31] MEDS ORDERED: ZITHROMAX INJ 500 MG VIAL IV ONE (04:24)
[2020-07-31 04:26] VITALS: BMI 22.2
[2020-07-31 05:19] LABS: BASOPHILS % (AUTO) 0.4 % (0.2-1.0); EOSINOPHILS # (AUTO) 0.5 x10^3/uL (0.0-0.2); HEMATOCRIT 46.1 % (36.0-47.0); HEMOGLOBIN 15.4 g/dL (12.0-16.0); LYMPHOCYTES # (AUTO) 2.3 X10^3/uL (1.3-2.9); MEAN CORPUSCULAR HEMOGLOBIN 29.3 pg (27.0-34.0); MEAN CORPUSCULAR HGB CONC 33.5 g/dL (33.0-35.0); MEAN CORPUSCULAR VOLUME 87.6 fL (80.0-100.0); MEAN PLATELET VOLUME 9.2 fL (7.4-11.0); MONOCYTES # (AUTO) 0.7 x10^3/uL (0.3-0.8); MONOCYTES % (AUTO) 6.7 % (0.0-13.0); NEUTROPHILS # (AUTO) 6.2 x10^3/uL (2.2-4.8); NEUTROPHILS % (AUTO) 63.9 % (42.0-75.0); PLATELET COUNT 184 X10^3/uL (150.0-450.0); RED BLOOD COUNT 5.27 X10^6/uL (3.5-5.4); RED CELL DISTRIBUTION WIDTH 14.3 % (11.6-16.5); WHITE BLOOD COUNT 9.8 X10^3/uL (3.6-10.0)
[2020-07-31 05:37] LABS: ALANINE AMINOTRANSFERASE 21 Units/L (12-78); ALBUMIN 3.8 g/dL (3.4-5.0); ALKALINE PHOSPHATASE 77 Units/L (46-116); ASPARTATE AMINO TRANSFERASE 16 Units/L (15-37); BLOOD UREA NITROGEN 11 mg/dL (7-18); CALCIUM 8.9 mg/dL (8.5-10.1); CARBON DIOXIDE 25.3 mmol/L (21-32); CHLORIDE 107 mmol/L (98-107); COR NA(FOR HYPERGLY) 144 mmol/L (136-145); CREATININE 0.91 mg/dL (0.55-1.02); SODIUM 143 mmol/L (136-145); eGFR NON BLACK RACES > 60 (>60)
[2020-07-31 05:39] LABS: SERUM PREGNANCY TEST, QUAL NEGATIVE <10 mIU/mL
--- NOTE | 2020-07-31 06:10 | RAD ---
HISTORYEMS BROUGHT PATIENT TO ED WITH COMPLAINTS OF ANXIETY ATTACKS AND A PANIC DISORDER. PATIENT PRESENTS VERY SOB AND IN A PANIC STATE. PATIENT DENIES RECENT DRUG USE BUT ADMITS TO USING METH X4 DAYS AGO, DENIES ANY OTHER USE OF DRUGS OTHER TRUNCATED ...STUDYCHEST, 1 [id number]/2019TECHNIQUEAP view of the chestFINDINGSPatient is mildly rotated. The cardiac and mediastinal contours are within normal limits. The lungs are clear without focal consolidation or segmental collapse. No pleural effusion or pneumothorax.IMPRESSIONNo acute pulmonary process.Electronically signed by: Bobo Spear (Jul 31, 2020 06:08:42)
[2020-07-31] MEDS: NS 1000 ML 1,000 ML IV SCH ×2 (09:08→20:18)
[2020-07-31] MEDS: ZITHROMAX INJ 500 MG VIAL 500 MG in NS 250 ML IV 250 ML IV SCH (09:10)
[2020-07-31] MEDS: PULMICORT NEB TX 0.5 MG NEB SCH ×2 (09:30→22:31)
[2020-07-31] MEDS: DUONEB 0.5 MG/3 MG (3 mL) NEB SCH ×4 (09:30→22:31)
[2020-07-31] MEDS: SINGULAIR TAB 10 MG PO SCH (11:28)
[2020-07-31] MEDS: ATIVAN INJ 2 MG VIAL IVP PRN (19:55)
[2020-08-01] MEDS: DUONEB 0.5 MG/3 MG (3 mL) NEB SCH ×6 (00:45→21:10)
[2020-08-01] MEDS: ATIVAN INJ 2 MG VIAL IVP PRN ×2 (04:52→22:00)
[2020-08-01 06:50] LABS: BASOPHILS # (AUTO) 0.1 X10^3/uL (0.0-0.1); BASOPHILS % (AUTO) 0.4 % (0.2-1.0); EOSINOPHILS % (AUTO) 0.2 % (0.9-2.9); HEMOGLOBIN 12.5 g/dL (12.0-16.0); LYMPHOCYTES # (AUTO) 2.7 X10^3/uL (1.3-2.9); LYMPHOCYTES % (AUTO) 18.1 % (21.0-51.0); MEAN CORPUSCULAR HEMOGLOBIN 29.4 pg (27.0-34.0); MEAN CORPUSCULAR HGB CONC 33.8 g/dL (33.0-35.0); MEAN CORPUSCULAR VOLUME 87.1 fL (80.0-100.0); MEAN PLATELET VOLUME 9.2 fL (7.4-11.0); MONOCYTES # (AUTO) 0.7 x10^3/uL (0.3-0.8); MONOCYTES % (AUTO) 4.9 % (0.0-13.0); NEUTROPHILS # (AUTO) 11.4 x10^3/uL (2.2-4.8); NEUTROPHILS % (AUTO) 76.4 % (42.0-75.0); PLATELET COUNT 240 X10^3/uL (150.0-450.0); RED BLOOD COUNT 4.25 X10^6/uL (3.5-5.4); RED CELL DISTRIBUTION WIDTH 14.5 % (11.6-16.5)
[2020-08-01 06:52] LABS: ALANINE AMINOTRANSFERASE 14 Units/L (12-78); ALBUMIN 2.9 g/dL (3.4-5.0); ALKALINE PHOSPHATASE 61 Units/L (46-116); ASPARTATE AMINO TRANSFERASE 8 Units/L (15-37); BLOOD UREA NITROGEN 9 mg/dL (7-18); CALCIUM 8.4 mg/dL (8.5-10.1); CARBON DIOXIDE 24.5 mmol/L (21-32); CHLORIDE 109 mmol/L (98-107); COR CA(FOR HYPOALB) 9.3 mg/dL (8.5-10.1); CREATININE 0.69 mg/dL (0.55-1.02); SODIUM 144 mmol/L (136-145); TOTAL PROTEIN 6.4 g/dL (6.4-8.2); eGFR NON BLACK RACES > 60 (>60)
[2020-08-01] MEDS: PULMICORT NEB TX 0.5 MG NEB SCH ×2 (08:51→21:10)
[2020-08-01] MEDS: ZITHROMAX INJ 500 MG VIAL 500 MG in NS 250 ML IV 250 ML IV SCH (09:05)
[2020-08-01] MEDS: SINGULAIR TAB 10 MG PO SCH (09:05)
[2020-08-01] MEDS: NS 1000 ML 1,000 ML IV SCH ×3 (10:44→22:00)
[2020-08-01] MEDS: PREDNISONE TAB 10 MG PO SCH (11:14)
[2020-08-02] MEDS: DUONEB 0.5 MG/3 MG (3 mL) NEB SCH ×3 (01:42→09:30)
--- NOTE | 2020-08-02 05:56 | RAD ---
HISTORYAsthmaSTUDYChest AP [id number] heart is within normal limits in size. The thomas are normal. The lungs are mildly hyperinflated but clear. No pleural effusions are identified. Bony thorax is unremarkable.IMPRESSIONLungs mildly hyperinflated but clearElectronically signed by: LUKE ECHEVARRIA (Aug 02, 2020 05:55:24)
[2020-08-02 06:27] LABS: BASOPHILS % (AUTO) 0.3 % (0.2-1.0); EOSINOPHILS # (AUTO) 0.2 x10^3/uL (0.0-0.2); EOSINOPHILS % (AUTO) 1.8 % (0.9-2.9); HEMATOCRIT 35.4 % (36.0-47.0); MEAN CORPUSCULAR HEMOGLOBIN 29.3 pg (27.0-34.0); MEAN CORPUSCULAR HGB CONC 33.8 g/dL (33.0-35.0); MEAN CORPUSCULAR VOLUME 86.6 fL (80.0-100.0); MEAN PLATELET VOLUME 9.1 fL (7.4-11.0); MONOCYTES # (AUTO) 0.4 x10^3/uL (0.3-0.8); MONOCYTES % (AUTO) 4.3 % (0.0-13.0); NEUTROPHILS # (AUTO) 6.7 x10^3/uL (2.2-4.8); NEUTROPHILS % (AUTO) 64.6 % (42.0-75.0); PLATELET COUNT 228 X10^3/uL (150.0-450.0); RED BLOOD COUNT 4.09 X10^6/uL (3.5-5.4); RED CELL DISTRIBUTION WIDTH 14.5 % (11.6-16.5); WHITE BLOOD COUNT 10.3 X10^3/uL (3.6-10.0)
[2020-08-02 06:48] LABS: ALANINE AMINOTRANSFERASE 15 Units/L (12-78); ALBUMIN 2.8 g/dL (3.4-5.0); ALKALINE PHOSPHATASE 60 Units/L (46-116); ASPARTATE AMINO TRANSFERASE 11 Units/L (15-37); BLOOD UREA NITROGEN 7 mg/dL (7-18); CALCIUM 8.4 mg/dL (8.5-10.1); CARBON DIOXIDE 25.5 mmol/L (21-32); CHLORIDE 109 mmol/L (98-107); COR CA(FOR HYPOALB) 9.4 mg/dL (8.5-10.1); CREATININE 0.65 mg/dL (0.55-1.02); SODIUM 142 mmol/L (136-145); TOTAL PROTEIN 6.3 g/dL (6.4-8.2); eGFR NON BLACK RACES > 60 (>60)
[2020-08-02] MEDS ORDERED: XANAX PO PRN (09:04)
[2020-08-02] MEDS: PREDNISONE TAB 10 MG PO SCH (09:14)
[2020-08-02] MEDS: SINGULAIR TAB 10 MG PO SCH (09:14)
[2020-08-02] MEDS: ZITHROMAX INJ 500 MG VIAL 500 MG in NS 250 ML IV 250 ML IV SCH (09:14)
[2020-08-02] MEDS: PULMICORT NEB TX 0.5 MG NEB SCH (09:30)
[2020-08-02] MEDS ORDERED: LEXAPRO ONE (09:41)
[2020-08-02] MEDS ORDERED: LEXAPRO PO SCH (10:00)
[2020-08-02 10:15] VITALS: BP 130/71
[2020-08-02] MEDS: NS 1000 ML 1,000 ML IV SCH (11:23)
== END 2020-08-02 11:52 | disposition home or self-care (01) | DRG 203 ==
LOC: ER 04:08 → MED/SURG 06:36
PROVIDERS: ADMIT Obstetrics & Gynecology Obstetrics; ATTEND Obstetrics & Gynecology Obstetrics
DX: Z20.828 Contact with and (suspected) exposure to other viral communicable diseases; J45.51 Severe persistent asthma with (acute) exacerbation